=== PATIENT | male | born 1975 | race Caucasian/White ===

== ENCOUNTER 2018-07-03 18:24 | Emergency (ER) | payer SELFPAY ==
[~2018-07-03] VITALS: Ht 172.7 cm; Wt 125.4 kg
[~2018-07-03 18:24] MED LIST: INDOCIN50 MG PO
[2018-07-03 18:47] LABS: HEMOGLOBIN 13.2 G/DL (12.5-16.6); MCH 28.3 PG (29.0-34.0); MCV 85.7 FL (86-99); PLATELET COUNT 224 K/uL (156-360); RBC DIS.WIDTH-CV 14.2 % (11.8-14.6); RBC DIS.WIDTH-SD 44.1 % (39-53); RED BLOOD COUNT 4.67 M/uL (4.00-5.50); WHITE BLOOD COUNT 9.9 K/uL (4.1-10.2)
[2018-07-03 19:11] LABS: CHLORIDE 103 mEq/L (99-109); POTASSIUM 3.4 mEq/L (3.7-5.4); SODIUM 139 mEq/L (136-147)
[2018-07-03 19:13] LABS: GLUCOSE 143 mg/dL (70-99)
[2018-07-03 19:17] LABS: GFR ESTIMATE (CALCULATED) > 59 mL/min/ (58.99-99999)
[2018-07-03 19:18] LABS: UREA NITROGEN (BUN) 9 mg/dL (9-23)
[2018-07-03] MEDS ORDERED: HYDROCHLOROTH12.5 M3 PO (20:00)
[2018-07-03 20:38] VITALS: BP 202/116
== END 2018-07-03 20:51 | disposition home or self-care (01) ==
LOC: EME 18:24
PROVIDERS: Physician Assistant
DX: I10 Essential (primary) hypertension (principal); F17.200 Nicotine dependence, unspecified, uncomplicated
CPT/HCPCS: 80048; 85027; 93005; 99281; 99284